=== PATIENT | female | born 1945 | race Caucasian/White ===

== ENCOUNTER 2018-09-18 10:46 | Day surgery (SDC) | payer MEDICARE, OTHER, SELFPAY ==
[2018-09-18 11:07] VITALS: BP 154/71; PULSE 61; RESP 16; TEMP 36.6; O2SAT 100
[2018-09-18] MEDS: PROPARACAINE 0.5% OPHTH SOL 2 DROPS EYE-OP (11:16)
[2018-09-18] MEDS: CATARACT EYE COMPOUND (10 DROPS/SYRINGE) 3 DROPS EYE-OP (11:22)
--- NOTE | 2018-09-18 12:10 | PM.PREOP ---
Pre-operative Note Interval Note History & Physical reviewed/Exam performed by Physician: No Changes to H&P: No
--- NOTE | 2018-09-18 12:10 | PM.OP.1 ---
Operative Date/Time/Diagnoses Pre-op diagnosis: Nuclear Cataract Left eye Post-op diagnosis: same Procedure & Clinicians Surgeon: Abner Gr Anesthesia Type: MAC +/- and Sedation Operative Notes Procedure in detail: Patient brought to the operating suite. Tetracaine drops placed in the left eye. Patient was prepped and draped in sterile manner. Wire lid speculum was placed in the eye. Betadine drops were placed on the eye. This was irrigated. Lidocaine jelly was placed on the eye. A paracentesis port was created with a side-port blade. 0.1 mL 1% preservative free lidocaine was injected into the anterior chamber. The anterior chamber was deepened with viscoelastic. 2.6 mm keratome was used to create a temporal clear corneal incision. Cystotome and Utrata forceps were used to create continuous tear capsulorrhexis. Balanced salt solution was used to hydro dissect the nucleus. The phacoemulsification handpiece was inserted and the nucleus was removed using the stop and chop technique. The irrigation aspiration handpiece was inserted and the remaining cortex was removed. Anterior chamber was deepened with viscoelastic. An Alves ZCB00 intraocular lens with a power of 29.5 was injected into the capsular bag. Irrigation aspiration handpiece was inserted and the remaining viscoelastic was removed. Incision was hydrated with balanced salt solution and found to be leak free with pressure with Weck-Virginie sponges. 0.1 mL Vigamox injected anterior chamber. 0.3 mL Kenalog 10 mg was injected subconjunctivally. Lid speculum was removed. The patient left the operating room in excellent condition. Complications: none Condition: stable Disposition: same day surgery
[2018-09-18] MEDS: PHENYLEPHRINE/LIDOCAINE VIAL (OR) 0.2 ML EYE-OP (12:29)
[2018-09-18] MEDS: LIDOCAINE JELLY 2% 5 ML 1 APPLIC TOP (12:30)
[2018-09-18] MEDS: CHONDROIDTIN/SOD HYALURONATE 1.05 ML SYRINGE INTRAOCULA (12:30)
[2018-09-18] MEDS: TRIAMCINOLONE 50 MG/5 ML VIAL INJ (12:30)
[2018-09-18] MEDS: MOXIFLOXACIN OPHTH DROPS 3 ML BOTTLE 2 DROPS INJ (12:30)
[2018-09-18] MEDS: TETRACAINE 0.5% OPHTH DROPS 4 ML 2 DROPS EYE-OP (12:31)
[2018-09-18] MEDS: BALANCED SALT IRRIG SOLN NO.2 500 ML, EPINEPHrine 1 MG IRR (12:31)
[2018-09-18 12:43] VITALS: BP 134/72; PULSE 66; RESP 15; TEMP 36.4; O2SAT 98
== END 2018-09-18 13:06 | disposition home or self-care (01) ==
PROVIDERS: PCP Family Medicine; Visit Provider Ophthalmology
DX: H25.12 Age-related nuclear cataract, left eye (principal); I10 Essential (primary) hypertension; J45.909 Unspecified asthma, uncomplicated
CPT/HCPCS: J0171; J2250; J3010; J3301

== ENCOUNTER 2018-10-09 11:13 | Day surgery (SDC) | payer MEDICARE, OTHER, SELFPAY ==
[2018-10-09 12:18] VITALS: BP 179/73; PULSE 67; RESP 16; TEMP 36.3; O2SAT 98; BMI 25.1
[2018-10-09] MEDS: PROPARACAINE 0.5% OPHTH SOL 2 DROPS EYE-OP (12:25)
[2018-10-09] MEDS: CATARACT EYE COMPOUND (10 DROPS/SYRINGE) 3 DROPS EYE-OP (12:30)
--- NOTE | 2018-10-09 12:45 | PM.PREOP ---
Pre-operative Note Interval Note History & Physical reviewed/Exam performed by Physician: No Changes to H&P: No
--- NOTE | 2018-10-09 12:45 | PM.OP.1 ---
Operative Date/Time/Diagnoses Pre-op diagnosis: Nuclear cataract right eye Procedure & Clinicians Procedure: Cataract Surgery Same procedure as scheduled: Yes Surgeon: Abner Gr Anesthesia Type: MAC +/- and Sedation Operative Notes Procedure in detail: Patient brought to the operating suite. Tetracaine drops placed in the right eye. Patient was prepped and draped in sterile manner. Wire lid speculum was placed in the eye. Betadine drops were placed on the eye. This was irrigated. Lidocaine jelly was placed on the eye. A paracentesis port was created with a side-port blade. 0.1 mL 1% preservative free lidocaine was injected into the anterior chamber. The anterior chamber was deepened with viscoelastic. 2.6 mm keratome was used to create a temporal clear corneal incision. Cystotome and Utrata forceps were used to create continuous tear capsulorrhexis. Balanced salt solution was used to hydro dissect the nucleus. The phacoemulsification handpiece was inserted and the nucleus was removed using the stop and chop technique. The irrigation aspiration handpiece was inserted and the remaining cortex was removed. Anterior chamber was deepened with viscoelastic. An Alves ZCB00 intraocular lens with a power of 29.5 was injected into the capsular bag. Irrigation aspiration handpiece was inserted and the remaining viscoelastic was removed. Incision was hydrated with balanced salt solution and found to be leak free with pressure with Weck-Virginie sponges. 0.1 mL Vigamox injected anterior chamber. 0.3 mL Kenalog 10 mg was injected subconjunctivally. Lid speculum was removed. The patient left the operating room in excellent condition. Complications: none Condition: stable Disposition: same day surgery
--- NOTE | 2018-10-09 12:55 | SUR.OPER ---
Supine on eye stretcher, head on extension cradle secured with tape. Arms tucked at sides with blanket. Pillow under knees.
[2018-10-09] MEDS: PHENYLEPHRINE/LIDOCAINE VIAL (OR) 0.2 ML EYE-OP (12:57)
[2018-10-09] MEDS: MOXIFLOXACIN OPHTH DROPS 3 ML BOTTLE 2 DROPS INJ (12:58)
[2018-10-09] MEDS: LIDOCAINE JELLY 2% 5 ML 1 APPLIC TOP (12:59)
[2018-10-09] MEDS: CHONDROIDTIN/SOD HYALURONATE 1.05 ML SYRINGE INTRAOCULA (12:59)
[2018-10-09] MEDS: TRIAMCINOLONE 50 MG/5 ML VIAL INJ (12:59)
[2018-10-09] MEDS: BALANCED SALT IRRIG SOLN NO.2 500 ML, EPINEPHrine 1 MG IRR (13:00)
[2018-10-09] MEDS: TETRACAINE 0.5% OPHTH DROPS 4 ML 2 DROPS EYE-OP (13:00)
[2018-10-09 13:14] VITALS: BP 116/64; PULSE 60; RESP 18; TEMP 36.4; O2SAT 99
[2018-10-09 13:22] VITALS: BP 125/70; PULSE 67; RESP 18; O2SAT 100
== END 2018-10-09 13:29 ==
LOC: OR 11:15
PROVIDERS: Visit Provider Ophthalmology
DX: H25.11 Age-related nuclear cataract, right eye (principal); I10 Essential (primary) hypertension; J45.909 Unspecified asthma, uncomplicated
CPT/HCPCS: J0171; J3301

== ENCOUNTER 2023-12-13 11:51 | Emergency (ER) | payer MEDICARE, OTHER, SELFPAY ==
[2023-12-13] VITALS (11 sets, daily range): BP systolic 120–175; BP diastolic 58–79; PULSE 56–93; RESP 15–25; TEMP 36.9; O2SAT 93–100
--- NOTE | 2023-12-13 12:22 | DI.RAD.S_ITS ---
PROCEDURE: XR CHEST 1V INDICATIONS: dyspnea TECHNIQUE: One view of the chest was acquired. COMPARISON: None. FINDINGS: Surgical changes and devices: None. Lungs and pleura: Lungs are clear. No pleural effusions or pneumothorax. Mediastinum: Mediastinal contours appear normal. Heart size is normal. Bones and chest wall: No suspicious bony lesions. Overlying soft tissues appear unremarkable. IMPRESSION: No acute cardiopulmonary pathology. Dictated by: Derrick Swift M.D. on 12/13/2023 at 12:58 Approved by: Derrick Swift M.D. on 12/13/2023 at 12:58
--- NOTE | 2023-12-13 12:25 | ED.SOB ---
HPI - SOB/Dyspnea General Chief Complaint: Shortness of Breath/Dyspnea Stated Complaint: sent by [facility], heart related Time Seen by Provider: 12/13/23 12:02 Source: patient Mode of arrival: Ambulatory Limitations: no limitations History of Present Illness HPI Narrative: 78-year-old female with history of hypertension, seasonal allergies presents for several days of intermittent shortness of breath. Patient states that she woke up several days ago with chest tightness, headache, and intermittent pain in the left side of her chest. Patient initially thought that she would need a mammogram because she thought that it was related to her breast. She went to the walk-in clinic but was referred to the emergency department for evaluation Related Data Home Medications Medication Instructions Recorded Confirmed acetaminophen 325 mg capsule 325 mg PO Q6H PRN Rash 10/09/18 12/13/23 hydrochlorothiazide 25 mg tablet 25 mg PO DAILY 10/09/18 12/13/23 triamcinolone acetonide 0.025 % 1 applic topical DAILY 10/09/18 12/13/23 topical ointment Allergies Allergy/AdvReac Type Severity Reaction Status Date / Time Penicillins Allergy Severe Hives/Rash Verified 12/13/23 11:49 Patient History Social History household members: spouse Smoking Status: Former smoker Smoking Status: Former smoker Substance Use Type: does not use Exam Initial Vital Signs Initial Vital Signs: Vital Signs Temperature 98.4 F 12/13/23 11:57 Pulse Rate 67 12/13/23 11:57 Respiratory Rate 18 12/13/23 11:57 Blood Pressure 175/79 H 12/13/23 11:57 Pulse Oximetry 100 12/13/23 11:57 Oxygen Delivery Method Room Air 12/13/23 11:57 Const: Awake, alert, no acute distress, nontoxic appearing Cardiac: regular rate, regular rhythm RESP: unlabored, clear bilaterally, no wheezing Breast: Press Tender Star Signal present, no obvious masses palpated, no obvious lesions or skin changes GI: Soft, nontender, nondistended, no rebound, no guarding MSK: Full range of motion, no edema Skin: Warm, Dry, intact, no rashes Neuro: AO x3, CN II-XII grossly intact, moves all extremities Course Orders Ordered: ED Orders 12/13/23 12:15 BNP [NT-proBNP (BNP-Adult 18+)] Stat CBC Auto Diff [Complete Blood Count AUTO DIFF] Stat CMP [Comprehensive Metabolic Panel] Stat D Dimer Stat PT [Prothrombin Time INR] Stat TSH [Thyroid Stimulating Hormone] Stat Troponin & CK Cardiac Panel Stat 12/13/23 12:22 Chest [XR chest 1V] Stat EKG-12 Lead Stat 12/13/23 13:21 CT angio chest PE protocol Stat Vital Signs Vital signs: Vital Signs - 8 hr 12/13/23 11:57 12/13/23 12:14 12/13/23 12:15 Temperature 98.4 F Pulse Rate 67 68 69 Respiratory Rate 18 18 20 Blood Pressure 175/79 H Pulse Oximetry 100 100 100 Oxygen Delivery Method Room Air Room Air 12/13/23 12:15 12/13/23 12:30 12/13/23 12:36 Temperature Pulse Rate 58 L Respiratory Rate 25 H Blood Pressure 122/58 L 120/76 Pulse Oximetry 98 Oxygen Delivery Method 12/13/23 12:36 12/13/23 13:00 12/13/23 13:00 Temperature Pulse Rate 59 L 57 L Respiratory Rate 22 18 Blood Pressure 128/58 L Pulse Oximetry 93 100 Oxygen Delivery Method 12/13/23 13:30 12/13/23 13:30 12/13/23 14:00 Temperature Pulse Rate 56 L 57 L Respiratory Rate 15 19 Blood Pressure 132/61 Pulse Oximetry 100 100 Oxygen Delivery Method 12/13/23 14:21 12/13/23 14:21 12/13/23 14:30 Temperature Pulse Rate 65 93 H Respiratory Rate 22 Blood Pressure 130/61 Pulse Oximetry 100 100 Oxygen Delivery Method 12/13/23 14:31 12/13/23 14:31 Temperature Pulse Rate 92 H Respiratory Rate Blood Pressure 160/71 H Pulse Oximetry 100 Oxygen Delivery Method MDM - SOB/Dyspnea Differential Diagnosis Differential diagnosis: Likely acute exacerbation of chronic obstructive airways disease, congestive heart failure and community acquired pneumonia Lab Data 12/13/23 12:15 12/13/23 12:15 Labs: Lab Results 12/13/23 Range/Units 12:15 WBC 8.3 (4.5-11.0) X10^3/uL RBC 4.56 (4.0-5.2) X10^6/uL Hgb 12.9 (12.0-16.0) g/dL Hct 38.1 (36-46) % MCV 83.5 (80-100) fL MCH 28.2 (26-34) PG MCHC 33.8 (30-36) % RDW 15.8 H (11.6-14.8) % Plt Count 276 (150-400) X10^3/uL Neut % (Auto) 77.6 H (50-75) % Lymph % (Auto) 15.3 L (25-40) % [place] % (Auto) 6.0 (3-14) % Eos % (Auto) 0.2 L (2-4) % Baso % (Auto) 0.9 (0-2) % Neut # (Auto) 6500 (6522-5060) /uL Lymph # (Auto) 1300 (1420-1617) /uL [place] # (Auto) 500 (0-900) /uL Eos # (Auto) 0 (0-450) /uL Baso # (Auto) 100 (0-100) /uL PT 12.3 (9.4-12.5) SECONDS INR 1.1 (0.9-1.3) D-Dimer 662 H (<500) ng/ml Sodium 134 L (137-145) mmol/L Potassium 3.8 (3.4-5.1) mmol/L Chloride 104 (98-107) mmol/L Carbon Dioxide 21 L (22-32) mmol/L BUN 13 (7-17) mg/dL Creatinine 0.97 (0.52-1.04) mg/dL Estimated GFR 59 L (>60) mL/min BUN/Creatinine Ratio 13.4 (6-22) Glucose 119 H (80-110) mg/dL Calcium 9.1 (8.4-10.2) mg/dL Total Bilirubin 0.7 (0.2-1.3) mg/dL AST 20 (14-36) IU/L ALT 13 (<35) IU/L Alkaline Phosphatase 73 (38-126) U/L Total Creatine Kinase 73 (30-135) U/L Troponin I 0.017 (0.01-0.034) ng/mL NT-Pro-B Natriuret Pep 3660 H (<450) pg/mL Total Protein 8.1 (6.3-8.2) g/dL Albumin 4.5 (3.5-5.0) g/dL Globulin 3.6 (1.7-4.1) g/dL Albumin/Globulin Ratio 1.3 (1.0-2.8) TSH 1.56 (0.47-4.68) uIU/mL Imaging Data CT scan - chest: Radiologist's Impression: PROCEDURE: CT ANGIO CHEST PE PROTOCOL INDICATIONS: dyspnea, elevated bnp TECHNIQUE: After the administration of intravenous contrast, 2 mm thick sections acquired from the pulmonary apices to the posterior costophrenic angles. 3-dimensional maximum intensity projection (MIP) coronal and sagittal reformats were then acquired through the thorax. For radiation dose reduction, the following was used: automated exposure control, adjustment of mA and/or kV according to patient size. COMPARISON: None. FINDINGS: Image quality: Diagnostic. Pulmonary arteries: Pulmonary arteries are normal in size, and demonstrate no intraluminal filling defects to suggest central pulmonary embolism. Lower Neck: No enlarged lymph nodes. Thyroid: No thyroid nodules which require sonographic follow up, per consensus guidelines. Axillae: No enlarged lymph nodes. Chest Wall: Unremarkable. Bones: No aggressive appearing bony lesions. Lungs and Pleura: No pneumothorax or pleural effusions. No consolidation or suspicious nodules. Heart: Heart size is borderline enlarged. No pericardial effusion. Thoracic Vessels: No aortic aneurysm. Mediastinum and Bisi: No enlarged lymph nodes. Esophagus: No wall thickening. No hiatal hernia. Upper Abdomen: Visualized upper abdomen solid organs and bowel loops appear normal. IMPRESSION: 1. No pulmonary embolus. No thoracic aortic aneurysm or gross dissection. 2. No acute cardiopulmonary process. 3. No mediastinal or hilar lymphadenopathy. Mild cardiomegaly, no pericardial effusion. Dictated by: Derrick Swift M.D. on 12/13/2023 at 14:15 Approved by: Derrick Swift M.D. on 12/13/2023 at 14:16 [facility] Narrative Medical decision making narrative: Well-appearing patient with shortness of breath over the last several days. Lungs are clear to auscultation bilaterally, saturating well on room air. Laboratory work ordered. Patient does state that she has had a lot of frustrations lately dealing with her who has advanced dementia and requires a lot of home care. Laboratory work significant for WBC count 8.3, hemoglobin 12.9, sodium 134, potassium 3.8, creatinine 0.97, troponin 0.017, BNP 3660. D-dimer only 662, which, when adjusted for age is appropriate value, however with unexplained dyspnea and elevated BNP we will order CT angio. CT angio shows no pulmonary embolism. There does appear to be some reflux of contrast into the liver, however after discussing CT results with radiology Dr. Swift, patient has possible borderline pulmonary artery diameter, but no secondary signs of pulmonary hypertension. Patient counseled on results of all labs and imaging. Recommended that if her symptoms do not improve she should follow up with her primary care doctor and discuss possible further testing. Patient instructed on blood pressure parameters for taking her hypertensive medication. Discharge Plan Departure Patient Disposition: Home Clinical Impression: Shortness of Breath Instructions: DI for Shortness of Breath Activity Restrictions/Additional Instructions: Your laboratory work today was reassuring. Your CT showed evidence of maybe some borderline high blood pressure in your lungs system, however this is not specific and we will need close follow up with your primary care doctor. Continue to take all of your medications as prescribed. Follow up with your primary care doctor. Prescriptions: No Action triamcinolone acetonide 0.025 % Ointment 1 applic TOPICAL DAILY hydrochlorothiazide 25 mg Tablet 25 mg PO DAILY acetaminophen 325 mg Capsule 325 mg PO Q6H PRN (Reason: Rash) Referrals: Miscellaneous,Doctor, [Primary Care Provider] - Stand Alone Forms: Patient Portal/API
[2023-12-13 12:28] LABS: Add Manual Diff / Slide Review NO; Basophils Absolute Auto 100 /uL (0-100); Basophils Percent Auto 0.9 % (0-2); Eosinophils Absolute Auto 0 /uL (0-450); Eosinophils Percent Auto 0.2 % (2-4); Hematocrit 38.1 % (36-46); Hemoglobin 12.9 g/dL (12.0-16.0); Lymphocytes Absolute Auto 1300 /uL (1100-4500); Lymphocytes Percent Auto 15.3 % (25-40); Mean Corpuscular HGB Conc 33.8 % (30-36); Mean Corpuscular Hemoglobin 28.2 PG (26-34); Mean Corpuscular Volume 83.5 fL (80-100); Monocytes Absolute Auto 500 /uL (0-900); Neutrophils Absolute Auto 6500 /uL (1500-7000); Neutrophils Percent Auto 77.6 % (50-75); Platelet Count 276 X10^3/uL (150-400); Red Blood Cell Count 4.56 X10^6/uL (4.0-5.2); Red Cell Distribution Width 15.8 % (11.6-14.8); White Blood Cell Count 8.3 X10^3/uL (4.5-11.0)
--- NOTE | 2023-12-13 12:33 | EKG_ITS ---
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
[2023-12-13 12:42] LABS: INR 1.1 (0.9-1.3); Prothrombin Time 12.3 SECONDS (9.4-12.5)
[2023-12-13 12:44] LABS: D Dimer 662 ng/ml (<500)
[2023-12-13 12:49] LABS: Alanine Aminotransferase 13 IU/L (<35); Albumin 4.5 g/dL (3.5-5.0); Albumin Globulin Ratio 1.3 (1.0-2.8); Alkaline Phosphatase 73 U/L (38-126); Aspartate Aminotransferase 20 IU/L (14-36); BUN Creatinine Ratio 13.4 (6-22); Bilirubin Total 0.7 mg/dL (0.2-1.3); Blood Urea Nitrogen 13 mg/dL (7-17); Calcium 9.1 mg/dL (8.4-10.2); Carbon Dioxide 21 mmol/L (22-32); Chloride 104 mmol/L (98-107); Creatine Kinase 73 U/L (30-135); Estimated Glomerular Filt Rate 59 mL/min (>60); Globulin 3.6 g/dL (1.7-4.1); Glucose 119 mg/dL (80-110); HEMOLYSIS < 15 (0-50); Potassium 3.8 mmol/L (3.4-5.1); Sodium 134 mmol/L (137-145); Total Protein 8.1 g/dL (6.3-8.2)
[2023-12-13 13:01] LABS: NT-proBNP (BNP-Adult 18+) 3660 pg/mL (<450); Troponin I 0.017 ng/mL (0.01-0.034)
[2023-12-13 13:19] LABS: Thyroid Stimulating Hormone 1.56 uIU/mL (0.47-4.68)
--- NOTE | 2023-12-13 13:21 | DI.CT.S_ITS ---
PROCEDURE: CT ANGIO CHEST PE PROTOCOL INDICATIONS: dyspnea, elevated bnp TECHNIQUE: After the administration of intravenous contrast, 2 mm thick sections acquired from the pulmonary apices to the posterior costophrenic angles. 3-dimensional maximum intensity projection (MIP) coronal and sagittal reformats were then acquired through the thorax. For radiation dose reduction, the following was used: automated exposure control, adjustment of mA and/or kV according to patient size. COMPARISON: None. FINDINGS: Image quality: Diagnostic. Pulmonary arteries: Pulmonary arteries are normal in size, and demonstrate no intraluminal filling defects to suggest central pulmonary embolism. Lower Neck: No enlarged lymph nodes. Thyroid: No thyroid nodules which require sonographic follow up, per consensus guidelines. Axillae: No enlarged lymph nodes. Chest Wall: Unremarkable. Bones: No aggressive appearing bony lesions. Lungs and Pleura: No pneumothorax or pleural effusions. No consolidation or suspicious nodules. Heart: Heart size is borderline enlarged. No pericardial effusion. Thoracic Vessels: No aortic aneurysm. Mediastinum and Bisi: No enlarged lymph nodes. Esophagus: No wall thickening. No hiatal hernia. Upper Abdomen: Visualized upper abdomen solid organs and bowel loops appear normal. IMPRESSION: 1. No pulmonary embolus. No thoracic aortic aneurysm or gross dissection. 2. No acute cardiopulmonary process. 3. No mediastinal or hilar lymphadenopathy. Mild cardiomegaly, no pericardial effusion. Dictated by: Derrick Swift M.D. on 12/13/2023 at 14:15 Approved by: Derrick Swift M.D. on 12/13/2023 at 14:16
== END 2023-12-13 14:47 | disposition home or self-care (01) ==
PROVIDERS: Emergency Provider Emergency Medicine
DX: R06.02 Shortness of breath (principal); R07.9 Chest pain, unspecified; R79.89 Other specified abnormal findings of blood chemistry
CPT/HCPCS: 36415; 71045; 71275; 80053; 82550; 83880; 84443; 84484; 85025; 85379; 85610; 93005; 99283; 99284; Q9967

== ENCOUNTER → 2024-05-17 12:35 | Outpatient (CLI) | payer OTHER, SELFPAY ==
--- NOTE | 2024-05-17 12:39 | DI.US.S_ITS ---
PROCEDURE: US EXTREMITY NONVASC UPPER LT INDICATIONS: large soft tissue mass TECHNIQUE: Real-time scanning was performed of the left shoulder and left forearm, with image documentation. COMPARISON: None. FINDINGS: Examination of left proximal forearm at patient's reported area of pain and palpable lumps shows soft tissue edema with a complex appearing fluid collection in antecubital fossa measures 3.1 x 2.6 x 1.4 cm in size. No significant peripheral hypervascularity is seen. Questionable internal solid component is seen. No internal vascularity. Ultrasound examination of left anterior shoulder shows heterogeneously hypoechoic area adjacent to the glenohumeral joint with low level internal echo. No internal vascularity is seen. No peripheral hypervascularity. IMPRESSION: 1. Complex cystic structure within left proximal forearm near antecubital fossa measures 3.1 x 2.6 x 1.4 cm in size with questionable internal solid component. No definite internal vascularity or peripheral hypervascularity is seen. Finding may represent a large ganglion cyst associated with elbow joint. Consider MRI of elbow for further evaluation of this area. 2. Complex cystic area also noted anterior to left shoulder joint with surrounding heterogeneous echotexture . No internal vascularity. Finding may represent complex fluid within subacromial subdeltoid bursa versus a ganglion cyst in this area. Consider MRI of shoulder for further evaluation. Dictated by: Derrick Swift M.D. on 05/17/2024 at 17:00 Approved by: Derrick Swift M.D. on 05/17/2024 at 17:04
== END ==
PROVIDERS: Referring Provider Family Medicine; Visit Provider Family Medicine
DX: R22.32 Localized swelling, mass and lump, left upper limb
CPT/HCPCS: 76882

== ENCOUNTER → 2024-06-25 08:30 | Outpatient (CLI) | payer OTHER, SELFPAY ==
--- NOTE | 2024-06-25 08:31 | DI.MRI.S_ITS ---
PROCEDURE: MR ELBOW LT WO/W CON INDICATIONS: Mass identified on US TECHNIQUE: Noncontrast coronal proton density fast spin echo and T2 fast spin echo with fat saturation, coronal T1 spin echo with fat saturation, axial and sagittal T1 spin echo and T2 fast spin echo with fat saturation through the elbow. Post-contrast coronal, axial, and sagittal T1 spin echo with fat saturation through the elbow. COMPARISON: None. FINDINGS: Image quality: Somewhat limited evaluation given patient motion. Lateral structures: The lateral ulnar collateral ligament and radial collateral ligament both appear intact. The overlying common extensor tendon also appears normal. Medial structures: The ulnar collateral ligament appears intact. The overlying common flexor tendon appears normal. The ulnar nerve appears normal in size and signal within the cubital tunnel. Anterior structures: High-grade tear of the distal biceps tendon, extending from the radial bicipital groove to the radial the tuberosity insertion. There is marked radial bicipital bursitis . 7 mm loose body within the radial bicipital bursa (05:15). The brachialis tendon is unremarkable. The median and radial neurovascular bundles appear normal; no focal muscle atrophy to suggest nerve impingement. Posterior structures: The conjoint triceps tendon from the long and lateral heads appears intact. The medial head of the triceps tendon also appears normal, with direct muscle insertion onto the olecranon. No olecranon bursal fluid. Bone and cartilage: No suspicious osseous enhancement. No bone marrow contusions or fractures. No osteochondral injuries. IMPRESSION: High-grade tear of the distal biceps tendon with marked radial bicipital bursitis. 7 mm loose body within the bicipital bursa. Dictated by: Blanca Harrison M.D. on 06/25/2024 at 11:58 Approved by: Blanca Harrison M.D. on 06/25/2024 at 12:07
--- NOTE | 2024-06-25 08:31 | DI.MRI.S_ITS ---
PROCEDURE: MR SHOULDER LT WO/W CON INDICATIONS: Mass identified on US TECHNIQUE: Noncontrast oblique coronal T1 spin echo and T2 fast spin echo with fat saturation, oblique sagittal T1 spin echo and T2 fast spin echo with fat saturation, axial T1 spin echo and T2 fast spin echo with fat saturation through the shoulder. Post-contrast oblique coronal, oblique sagittal, and axial T1 spin echo with fat saturation through the shoulder. COMPARISON: [facility], US, US EXTREMITY NONVASC UPPER LT, 05/17/2024, 13:12. FINDINGS: Image quality: Excellent. Rotator cuff: In the supraspinatus, there is low-grade, tarsal tear at the critical zone of the posterior fiber (08:10). There is articular sided, near full-thickness tear at the critical zone of the anterior infraspinatus, measuring 1.0 cm on sagittal dimension. The teres minor is unremarkable. The subscapularis is unremarkable. No muscle edema or fatty atrophy. Bones and bursae: Mild degenerative changes acromioclavicular joint. Type 2 acromion. No os acromiale. Mild subacromial/subdeltoid bursitis. Moderate subchondral cystic changes at the greater tuberosity with mild marrow edema, reactive. No acute fracture. No focal chondral defect of the glenohumeral articulation. No suspicious marrow replacing lesion. Capsule and soft tissues: Superior labral tear. Mild tenosynovitis of the extra-articular biceps tendon. The intra-articular biceps tendon is unremarkable as well. Trace glenohumeral effusion. No intra-articular body. There is a 3.7 cm fat containing lesion with mildly thickened enhancing internal septation superficial to the acromion (19:16), raising concern for low-grade liposarcoma. IMPRESSION: 1. 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 Recommend further evaluation with tissue sampling. 2. Low-grade tear of the supraspinatus. Near full-thickness, partial width tear of the infraspinatus. Dictated by: Blanca Harrison M.D. on 06/25/2024 at 11:44 Approved by: Blanca Harrison M.D. on 06/25/2024 at 11:58
== END ==
PROVIDERS: PCP Family Medicine; Referring Provider Family Medicine; Visit Provider Family Medicine
DX: S46.212A Strain of muscle, fascia and tendon of other parts of biceps, left arm, initial encounter (principal); M71.522 Other bursitis, not elsewhere classified, left elbow; R22.9 Localized swelling, mass and lump, unspecified
CPT/HCPCS: 73223; A9579

== ENCOUNTER → 2025-02-26 11:36 | Outpatient (CLI) | payer OTHER, SELFPAY ==
--- NOTE | 2025-02-26 11:39 | DI.US.S_ITS ---
PROCEDURE: US EXTREMITY NONVASC UPPER LT INDICATIONS: F/U TO MRI TECHNIQUE: Real-time scanning was performed of the left shoulder region , with image documentation. COMPARISON: [facility], MR, MR SHOULDER LT WO/W CON, 06/25/2024, 9:08. [facility], US, US EXTREMITY NONVASC UPPER LT, 05/17/2024, 13:12. IMPRESSION: There is again seen a superficial fatty area measuring 8 x 3.5 x 1.2 cm. Ultrasound is not able to evaluate for low-grade liposarcoma, follow-up MRI or biopsy may be considered. Dictated by: Giovani Carney M.D. on 02/26/2025 at 21:07 Approved by: Giovani Carney M.D. on 02/26/2025 at 21:09
== END ==
PROVIDERS: PCP Family Medicine; Referring Provider Family Medicine; Visit Provider Family Medicine
DX: R22.9 Localized swelling, mass and lump, unspecified (principal)
CPT/HCPCS: 76882

== ENCOUNTER → 2025-04-07 11:49 | Outpatient (CLI) | payer OTHER, SELFPAY ==
--- NOTE | 2025-04-07 11:50 | DI.MRI.S_ITS ---
PROCEDURE: MR SHOULDER LT WO/W CON INDICATIONS: Localized swelling, mass and lump TECHNIQUE: Noncontrast oblique coronal T1 spin echo and T2 fast spin echo with fat saturation, oblique sagittal T1 spin echo and T2 fast spin echo with fat saturation, axial T1 spin echo and T2 fast spin echo with fat saturation through the shoulder. Post- contrast oblique coronal, oblique sagittal, and axial T1 spin echo with fat saturation through the shoulder. COMPARISON: [facility], , MR SHOULDER LT WO/W CON, 06/25/2024, 9:08. FINDINGS: Image quality: Excellent. Rotator cuff: Chronic posterior supraspinatus and anterior infraspinatus supraspinatus full-thickness, partial width, 8 mm, tear at the humeral apex. Moderate tendinosis of the intact anterior supraspinatus tendon fibers. Similar low grade bursal sided insertional fraying, less than 25%, of the anterior supraspinatus at the footprint. Mild intrasubstance tendinosis of subscapularis. No tear. Intact teres minor. Similar mild atrophy of supraspinatus. No significant fatty infiltration of the rotator cuff musculature accounting for patient age. Biceps: Mild tendinosis of the intra-articular long head of the biceps. Small volume fluid in the distal biceps tendon sheath. Osseous structures and articular cartilage: No fracture, or suspicious marrow replacing process, or contusion. Enthesopathic change in the greater tuberosity. Similar areas of grade 2-3 articular cartilage thinning and fraying in the central glenoid and inferior medial humeral head. Partial-thickness, grade 2, articular cartilage thinning and fraying in the superior humeral head. No suspicious marrow replacing abnormality. Supraspinatus outlet: Mild to moderate degenerative arthrosis of the acromion. Inferiorly directed distal acromion with small subacromial spurring. Small volume subacromial subdeltoid bursitis. Intra-articular: Similar circumferential labral degenerative blunting and fraying. The capsule is unremarkable. No imaging findings of adhesive capsulitis. Extra-articular: Normal deltoid. No visualized axillary lymphadenopathy. Interval increase in size the fatty 5.4 by 1.4 by 3.3 cm lesion along the posterior superior subcutaneous fat of the shoulder, the lesion measured 4 x 1.8 x 3.8 cm when measured similarly on 06/25/2024. On postcontrast sequence, there thinly enhancing internal septations, which is overall decreased in prominence compared to prior exam in June 2024, which may represent differences in postcontrast acquisition timing. Overall the fat containing lesion is of equal to lesser complexity than the adjacent sub cutaneous fat. IMPRESSION: 1. Increased size of the mildly complex lipomatous lesion in the posterior superior subcutaneous fat of the left shoulder. The interval increase in size is atypical for a simple lipoma although the internal complexity has decreased in prominence compared to the prior exam. Consider surgical excision versus percutaneous sampling for further evaluation given interval increase in size. 2. Similar chronic posterior supraspinatus and anterior infraspinatus full- thickness partial with tear at the humeral apex with moderate tendinosis of the tendon fibers. 3. Mild tendinosis of the intra-articular long head of biceps. 4. Mild osteoarthritis of the glenohumeral joint. 5. Downsloping distal acromion, correlate for subacromial impingement. Dictated by: Som Estrada M.D. on 04/07/2025 at 13:30 Approved by: oSm Estrada M.D. on 04/07/2025 at 13:43
== END ==
PROVIDERS: PCP Family Medicine; Referring Provider Family Medicine; Visit Provider Family Medicine
DX: R22.32 Localized swelling, mass and lump, left upper limb (principal); M75.112 Incomplete rotator cuff tear or rupture of left shoulder, not specified as traumatic; M19.012 Primary osteoarthritis, left shoulder
CPT/HCPCS: 73223; A9579